=== PATIENT | male | born 1995 | race Caucasian/White ===

== ENCOUNTER 2022-01-02 06:19 | Inpatient (IN) | payer MEDICAID ==
[~2022-01-02] VITALS: Ht 193 cm; Wt 71.8 kg
[2022-01-02] MEDS ORDERED: normal saline 1000ML IV soln IV ONE (06:30)
[2022-01-02] MEDS ORDERED: HYDROmorphone 1 mg/ml syringe IV ONE (07:15)
[2022-01-02] MEDS ORDERED: ondansetron/PF 4mg/2ml inj IV ONE (07:15)
[2022-01-02 07:17] LABS: BASOPHILS % (AUTO) 0.1 % (0-1); EOSINOPHILS % (AUTO) 0 % (0-6); HEMATOCRIT 36.5 % (42.0-52.0); HEMOGLOBIN 12.2 g/dl (14.0-17.9); LYMPHOCYTES # (AUTO) 0.4 X10'3 (1.1-4.8); LYMPHOCYTES % (AUTO) 1.7 % (21-51); MEAN CORPUSCULAR HEMOGLOBIN 27.9 PG (27.0-31.0); MEAN CORPUSCULAR HGB CONC 33.4 g/dL (33.0-36.5); MEAN CORPUSCULAR VOLUME 83.4 FL (78-98); MEAN PLATELET VOLUME 8.4 FL (7.4-10.4); MONOCYTES # (AUTO) 2.9 X10'3 (0-0.9); MONOCYTES % (AUTO) 14.2 % (2-12); NEUTROPHILS # (AUTO) 17.1 X10'3 (1.8-7.7); PLATELET COUNT 283 X10'3 (140-440); RED BLOOD COUNT 4.37 X10'6 (4.70-6.10); RED CELL DISTRIBUTION WIDTH 13.5 % (11.5-14.5); WHITE BLOOD COUNT 20.4 X10'3 (4.5-11.0)
[2022-01-02 07:23] LABS: ALANINE AMINOTRANSFERASE 24 U/L (12-78); ALBUMIN 2.2 G/DL (3.4-5.0); ALBUMIN/GLOBULIN RATIO 0.6 (1.1-1.5); ALKALINE PHOSPHATASE 109 IU/L (46-116); ANION GAP 13 (8-16); ASPARTATE AMINO TRANSFERASE 21 U/L (10-37); BILIRUBIN,TOTAL 1.7 MG/DL (0.1-1.0); BLOOD UREA NITROGEN 10 MG/DL (7-18); BUN/CREATININE RATIO 14.3 (5.4-32.0); CALCIUM 7.7 MG/DL (8.5-10.1); CHLORIDE 97 MMOL/L (99-107); GLUCOSE 126 MG/DL (70-104); MAGNESIUM 1.6 MG/DL (1.5-2.4); POTASSIUM 3.7 MMOL/L (3.5-5.1); SODIUM 133 MMOL/L (135-145); TOTAL CARBON DIOXIDE 22.6 MMOL/L (24-32); TOTAL PROTEIN 5.8 G/DL (6.4-8.2); eGFR > 90 ML/MIN
[2022-01-02] MEDS ORDERED: potassium Cl 20 mEq SR tablet PO PRN ×2 (08:10)
[2022-01-02] MEDS ORDERED: albuterol 2.5 MG/3 ML nebule NEB PRN (08:10)
[2022-01-02] MEDS ORDERED: magnesium 2GM in 50ml NS 50 ML IV PRN (08:10)
[2022-01-02] MEDS ORDERED: mag hydrox/Alum hydrox/simeth 30ml oral suspension PO PRN (08:10)
[2022-01-02] MEDS ORDERED: acetaminophen 325mg tablet PO PRN ×2 (08:10)
[2022-01-02] MEDS ORDERED: PERFLUTREN PROTEIN-A MICROSPHR (Optison) 0.22 MG/ML 3ML VIAL IV ONE (08:10)
[2022-01-02] MEDS ORDERED: ondansetron/PF 4mg/2ml inj IV PRN (08:10)
[2022-01-02] MEDS: normal saline 1000ml 1,000 ML IV SCH ×2 (08:10→15:44)
[2022-01-02] MEDS ORDERED: potassium CL 10mEq/100ml bag 100 ML IV PRN (08:10)
[2022-01-02] MEDS ORDERED: ipratropium/albuterol 3ml nebule NEB PRN (08:10)
[2022-01-02] MEDS ORDERED: HYDROcodone/acetaminophen 5mg/325mg tablet PO PRN (08:10)
[2022-01-02] MEDS ORDERED: magnesium 4gm in 100ml NS 100 ML IV PRN (08:10)
[2022-01-02] MEDS ORDERED: magnesium hydroxide 30ml (MOM) UD suspension PO PRN (08:10)
[2022-01-02] MEDS ORDERED: VANCOMYCIN 1GM/200ML IVPB 200 ML IV ONE (08:10)
[2022-01-02] MEDS ORDERED: vancomycin/NS 1 GM ADD-VANTAGE 250 ML IV ONE (08:45)
[2022-01-02] MEDS ORDERED: VANCOMYCIN 1GM/200ML IVPB 200 ML IV SCH ×2 (09:00→17:00)
[2022-01-02 09:46] LABS: PLATELET ESTIMATE NORMAL; TOTAL CELLS COUNTED 100
--- NOTE | 2022-01-02 09:59 | NUR ---
Report given to CHRIS Ortiz. Pt to be going to room 3705r
[2022-01-02 10:45] VITALS: BP 121/72
[2022-01-02] MEDS: HYDROcodone/acetaminophen 10/325mg tab PO PRN ×2 (10:52→19:26)
[2022-01-02] MEDS ORDERED: NO HOME MEDS (11:34)
[2022-01-02] MEDS ORDERED: tPA-cathflo 2 MG/2 ml IV flush ONE (12:39)
[2022-01-02] MEDS ORDERED: fentaNYL/PF 50MCG/1 ML 2ML syringe ONE (12:42)
[2022-01-02 12:50] VITALS: BP 125/66
[2022-01-02 12:59] VITALS: BP 113/60
[2022-01-02] MEDS: HYDROmorphone inj. 0.5 MG/0.5 ML DISP.SYRIN IV PRN ×2 (14:45→22:55)
[2022-01-02 15:00] VITALS: BP 120/72
[2022-01-02] MEDS: piperacillin/tazo 4.5gm/100ml 100 ML IV SCH (15:44)
[2022-01-02 18:00] VITALS: BP 131/58
[2022-01-02] MEDS: docusate sod 100mg capsule PO SCH (19:24)
[2022-01-02] MEDS: enoxaparin 40mg/0.4ml syringe SQ SCH (19:24)
[2022-01-02] MEDS: K and/or MAG REPLACEMENT MC SCH (19:43)
[2022-01-02] MEDS: nicotine 21mg patch - 24 hr TD SCH (19:43)
[2022-01-02 22:00] VITALS: BP 128/61
[2022-01-03] VITALS (21 sets, daily range): BP systolic 96–171; BP diastolic 52–107
[2022-01-03] MEDS: normal saline 1000ml 1,000 ML IV SCH ×3 (00:26→18:59)
[2022-01-03] MEDS: piperacillin/tazo 4.5gm/100ml 100 ML IV SCH ×3 (00:54→16:00)
[2022-01-03] MEDS ORDERED: VANCOMYCIN 1GM/200ML IVPB 200 ML IV SCH ×2 (01:05→11:23)
[2022-01-03] MEDS ORDERED: VANCOMYCIN 1GM/200ML IVPB 200 ML IV ONE (01:25)
[2022-01-03] MEDS: HYDROmorphone inj. 0.5 MG/0.5 ML DISP.SYRIN IV PRN ×4 (01:41→11:36)
[2022-01-03] MEDS: HYDROcodone/acetaminophen 10/325mg tab PO PRN ×2 (03:51→10:37)
--- NOTE | 2022-01-03 06:34 | NUR ---
Problems reprioritized. Patient report given, questions answered & plan of care reviewed with CHRIS Fields.
--- NOTE | 2022-01-03 07:24 | NUR ---
Dr. Schulte made aware of patient's chest x-ray report called in by x-ray tech Ariel at 0706. He states, " I will look at it". Patient is resting comfortably with no apparent distress. No drainage noted in chest tube drainage canister. Will continue to monitor.
--- NOTE | 2022-01-03 07:57 | NUR ---
I called romero linn back at [phone] Reyes's cell phone number so they can contact him with the critical imaging results
[2022-01-03] MEDS: K and/or MAG REPLACEMENT MC SCH ×2 (08:00→20:00)
[2022-01-03] MEDS ORDERED: VANCOMYCIN LEVEL IV ONE (08:30)
[2022-01-03] MEDS: docusate sod 100mg capsule PO SCH ×2 (08:48→20:00)
[2022-01-03] MEDS: nicotine 21mg patch - 24 hr TD SCH (08:48)
[2022-01-03 09:03] LABS: BASOPHILS % (AUTO) 0.1 % (0-1); EOSINOPHILS % (AUTO) 0 % (0-6); HEMATOCRIT 35.7 % (42.0-52.0); HEMOGLOBIN 11.9 g/dl (14.0-17.9); LYMPHOCYTES # (AUTO) 1.1 X10'3 (1.1-4.8); LYMPHOCYTES % (AUTO) 5.8 % (21-51); MEAN CORPUSCULAR HEMOGLOBIN 28.1 PG (27.0-31.0); MEAN CORPUSCULAR HGB CONC 33.3 g/dL (33.0-36.5); MEAN CORPUSCULAR VOLUME 84.4 FL (78-98); MEAN PLATELET VOLUME 8.3 FL (7.4-10.4); MONOCYTES # (AUTO) 2.2 X10'3 (0-0.9); MONOCYTES % (AUTO) 11.5 % (2-12); NEUTROPHILS # (AUTO) 15.8 X10'3 (1.8-7.7); NEUTROPHILS % (AUTO) 82.6 % (42-75); PLATELET COUNT 334 X10'3 (140-440); RED BLOOD COUNT 4.23 X10'6 (4.70-6.10); WHITE BLOOD COUNT 19.1 X10'3 (4.5-11.0)
[2022-01-03 10:41] LABS: ALANINE AMINOTRANSFERASE 22 U/L (12-78); ALBUMIN 1.8 G/DL (3.4-5.0); ALBUMIN/GLOBULIN RATIO 0.5 (1.1-1.5); ALKALINE PHOSPHATASE 102 IU/L (46-116); ANION GAP 10 (8-16); ASPARTATE AMINO TRANSFERASE 19 U/L (10-37); BILIRUBIN,TOTAL 0.8 MG/DL (0.1-1.0); BLOOD UREA NITROGEN 9 MG/DL (7-18); BUN/CREATININE RATIO 14.1 (5.4-32.0); CALCIUM 7.9 MG/DL (8.5-10.1); CHLORIDE 96 MMOL/L (99-107); CREATININE 0.64 MG/DL (0.60-1.10); GLUCOSE 84 MG/DL (70-104); MAGNESIUM 1.8 MG/DL (1.5-2.4); POTASSIUM 3.8 MMOL/L (3.5-5.1); SODIUM 130 MMOL/L (135-145); TOTAL CARBON DIOXIDE 23.6 MMOL/L (24-32); TOTAL PROTEIN 5.3 G/DL (6.4-8.2); VANCOMYCIN,TROUGH 10.3 UG/ML (6.0-14.0); eGFR > 90 ML/MIN
--- NOTE | 2022-01-03 11:59 | NUR ---
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 Pt currently on regular diet w/ 75-100% first two meals and partially meeting estimated needs. Pt has no edema or muscle weakness, and is WDWN per EMR and does not meet the minimum criteria for malnutrition. summer internship spoke w/ pt at bedside regarding pt preferences, pt likes protein shakes and smoothies. Recommend smoothies BIDBD and shakes WL to help meet increased protein needs. LBM pending, receiving routine bowel care. Will continue to monitor for nutrition needs. Recommendations: 1. Continue regular diet 2. Smoothies BIDBD, shakes WL 3. Routine bowel care 4. Weekly scaled wts Addendum: 01/03/22 at [address] Amended: Links added. Addendum: 01/03/22 at [address] I have reviewed assessment by consultants intern
[2022-01-03] MEDS ORDERED: TALC 4 GM VIAL ***intrapleural administration only IX ONE (12:28)
[2022-01-03] MEDS ORDERED: sevoflurane 250ml liquid IH ONE (13:42)
[2022-01-03] MEDS ORDERED: rocuronium 10mg/ml inj IV ONE ×3 (13:45→15:42)
[2022-01-03] MEDS ORDERED: LIDOcaine 2% (20mg/ml) 5ml vial ONE (13:45)
[2022-01-03] MEDS ORDERED: propofol inj 20 ML IV ONE (13:45)
[2022-01-03] MEDS ORDERED: MIDAZolam 1 MG/ML 5ML VIAL ONE (13:48)
[2022-01-03] MEDS ORDERED: dexamethasone sod phosphate 4mg/ml inj. ONE (14:45)
[2022-01-03] MEDS ORDERED: fentaNYL /PF 50mcg/ml 5ml ampule ONE (14:45)
[2022-01-03] MEDS ORDERED: ondansetron/PF 4mg/2ml inj ONE (14:46)
[2022-01-03] MEDS ORDERED: albumin (Human) 5% 250ml 250 ML IV ONE (14:53)
[2022-01-03] MEDS ORDERED: ringers solution, lacted 1,000 ML IV SCH (15:10)
[2022-01-03] MEDS ORDERED: ondansetron/PF 4mg/2ml inj IV PRN ×2 (15:10→16:05)
[2022-01-03] MEDS ORDERED: midazolam 100mg in NS 100ml 50 ML IV SCH (15:10)
[2022-01-03] MEDS ORDERED: labetalol 20mg/4ml (5mg/ml) syringe IV PRN (15:10)
[2022-01-03] MEDS ORDERED: morphine 4 MG/ML inj SYRINge IV PRN (15:10)
[2022-01-03] MEDS ORDERED: morphine 2 MG/ML inj. syringe IV PRN (15:10)
[2022-01-03] MEDS ORDERED: fentaNYL/PF 50MCG/1 ML 2ML syringe IV PRN ×2 (15:10)
[2022-01-03] MEDS ORDERED: albuterol 2.5 MG/3 ML nebule NEB PRN (16:05)
[2022-01-03] MEDS ORDERED: metoclopramide 5 mg/ml inj IV PRN (16:05)
[2022-01-03] MEDS ORDERED: HYDROcodone/acetaminophen 10/325mg tab PO PRN ×2 (16:05)
[2022-01-03] MEDS ORDERED: naloxone 0.4 mg/ml inj IV PRN (16:05)
--- NOTE | 2022-01-03 16:16 | NUR ---
Received from OR via BED IN STABLE CONDITION INTUBATED AND RIGHT CHEST TUBE , accompanied by Anesthesiologist and PREDICTIVE MAINTENANCE TECHNICIAN report given by PREDICTIVE MAINTENANCE TECHNICIAN AND Anesthesiolgist. Addendum: 01/03/22 at 1801 by Veronica Santoyo RN Amended: Links added.
--- NOTE | 2022-01-03 16:20 | NUR ---
FENTANYL AND VERSED STARTED AT 1620 Addendum: 01/03/22 at 1641 by Veronica Santoyo RN Amended: Links added.
[2022-01-03] MEDS: FENTANYL-0.9 % NACL/PF 100 ML IV PRN ×2 (16:37→20:54)
[2022-01-03 16:55] LABS: ABG BASE EXCESS -2.9 mmol/L (-2.0-2.0); ABG HCO3 21.8 mmol/L (22.0-26.0); ABG OXYGEN SATURATION 99.3 % (94-97); ABG PCO2 (T) 36.6 mmHg (35.0-48.0); ABG PO2 (T) 248.4 mmHg (75.0-100.0); FCOHb 0.3 % (0.0-3.9); FMetHb 0.5 % (0.0-1.5); FO2Hb 98.5 % (94-97); PATIENT TEMPERATURE 36.4; PEEP 5 cm H2O; RESPIRATORY RATE 12 b/min; TIDAL VOLUME 650 mL; TOTAL HEMOGLOBIN 12.8 G/dl (14.0-18.0)
[2022-01-03] MEDS: VANCOmycin 1250MG/NS 250ml Bag 250 ML IV SCH (17:00)
--- NOTE | 2022-01-03 17:36 | NUR ---
PATIENT DISCHARGED FROM PACU IN STABLE CONDITION AFTER REPORT GIVEN TO RN TAKING OVER PATIENTS CARE. PATIENT TRANSPORTED TO ROOM 2038 VIA BED ON MONITOR WITH RN X2 AND BEING BAGED BY RT. ALL LINES AND DRAINS IN PLACE. SEDATION RUNNING. Addendum: 01/03/22 at 1819 by Veronica Santoyo RN Amended: Links added.
--- NOTE | 2022-01-03 17:57 | NUR ---
Patient came from recovery via ICU bed with x2 RN and x1 RT. Patient was awake and slightly agitated upon arrival. Patient was found to have Fentanyl running at 200 mcg/hr and Versed running at 8mL /hr. Patient was connected to vent and ICU monitors. Vitals are as follows HR 97 BP 158/77 Temp 36.8 RR 18 O2 sat 97% on SIMV FiO2 of 40%. Patient skin was assessed and upon turning patient to the left it was noted that the surgical site was leaking through the bandage and saturating the bed sheet. Sanguinous drainage outlined on dressing at 1747. It was also noted that the patient had crepitus to posterior and lateral chest. A call was made to Dr. Reyes's phone to ensure he was aware of this finding. Dr. Reyes is currently in surgery and the message was relayed. Chest tube is without air leak and with 196 mL of output total. Urine output 110 mL. Lungs are very coarse throughout, bilateral radial pulses and bilateral pedal pulses palpated and were normal, cap refill less than 2 seconds. No edema noted throughout. It appears that the patient has needle stick rodriguez following veins on bilateral upper extremities.
--- NOTE | 2022-01-03 18:09 | NUR ---
FENTANYL INCREASED FOR SEDATION TO 50MCG@1645, 75MCG@1715. VERSED WAS INCREASED FOR SEDATION TO 3MG@1645, 5MG@1715, TO 8MG@1735. Addendum: 01/03/22 at 1819 by Veronica Santoyo RN Amended: Links added.
--- NOTE | 2022-01-03 18:25 | NUR ---
Patient in room ICU 2038. I have received report from Malaika PEREZ and had the opportunity to ask questions and assume patient care. PT intubated/sedated, all vital signs WNL. Will continue to monitor patient.
--- NOTE | 2022-01-03 18:26 | NUR ---
Spoke with Dr. Reyes who stated that he now understands about the patient's crepitus and leaking surgical site. He gave orders to continue the chest tube to suction. He also stated that the plan is to leave the patient intubated over night and assess in the morning to see if he is ready for extubation.
--- NOTE | 2022-01-03 18:53 | NUR ---
Problems reprioritized. Patient report given, questions answered & plan of care reviewed with Tg Mohamud
--- NOTE | 2022-01-03 19:05 | NUR ---
Dr. Catalan at bedside to assess patient. Drainage to chest tube incision site noted by MD. No new orders received. Will continue to monitor patient.
[2022-01-03 21:12] LABS: BASOPHILS % (AUTO) 0.1 % (0-1); EOSINOPHILS % (AUTO) 0 % (0-6); HEMATOCRIT 33.8 % (42.0-52.0); HEMOGLOBIN 11.2 g/dl (14.0-17.9); LYMPHOCYTES # (AUTO) 0.4 X10'3 (1.1-4.8); MEAN CORPUSCULAR HEMOGLOBIN 27.5 PG (27.0-31.0); MEAN CORPUSCULAR HGB CONC 33.1 g/dL (33.0-36.5); MEAN CORPUSCULAR VOLUME 83.2 FL (78-98); MEAN PLATELET VOLUME 7.7 FL (7.4-10.4); MONOCYTES # (AUTO) 1.2 X10'3 (0-0.9); MONOCYTES % (AUTO) 5.5 % (2-12); NEUTROPHILS # (AUTO) 19.7 X10'3 (1.8-7.7); NEUTROPHILS % (AUTO) 92.4 % (42-75); PLATELET COUNT 348 X10'3 (140-440); RED BLOOD COUNT 4.06 X10'6 (4.70-6.10); WHITE BLOOD COUNT 21.3 X10'3 (4.5-11.0)
[2022-01-03 21:33] LABS: ALANINE AMINOTRANSFERASE 13 U/L (12-78); ALBUMIN/GLOBULIN RATIO 0.6 (1.1-1.5); ANION GAP 14 (8-16); ASPARTATE AMINO TRANSFERASE 19 U/L (10-37); BILIRUBIN,TOTAL 0.6 MG/DL (0.1-1.0); BLOOD UREA NITROGEN 9 MG/DL (7-18); BUN/CREATININE RATIO 17.3 (5.4-32.0); CALCIUM 7.9 MG/DL (8.5-10.1); CHLORIDE 99 MMOL/L (99-107); CREATININE 0.52 MG/DL (0.60-1.10); GLUCOSE 99 MG/DL (70-104); MAGNESIUM 1.7 MG/DL (1.5-2.4); PHOSPHORUS 3.8 MG/DL (2.3-4.5); POTASSIUM 4.2 MMOL/L (3.5-5.1); SODIUM 136 MMOL/L (135-145); TOTAL CARBON DIOXIDE 22.6 MMOL/L (24-32); TOTAL PROTEIN 5.2 G/DL (6.4-8.2); eGFR > 90 ML/MIN
[2022-01-03] MEDS: gabapentin 300mg capsule PO SCH (21:49)
[2022-01-03] MEDS: ketorolac tromethamine 15mg/ml inj. IV SCH (21:49)
[2022-01-03] MEDS: enoxaparin 40mg/0.4ml syringe SQ SCH (21:49)
[2022-01-03] MEDS: potassium Cl 20mEq in D5-NS 1,000 ML IV SCH (23:19)
[2022-01-03] MEDS: ceFAZolin inj. 1,000 MG in dextrose 5%-water 50ml 50 ML IV SCH (23:19)
[2022-01-04] VITALS (31 sets, daily range): BP systolic 97–156; BP diastolic 57–76
[2022-01-04] MEDS: FENTANYL-0.9 % NACL/PF 100 ML IV PRN (00:06)
[2022-01-04] MEDS ORDERED: midazolam 100mg in NS 100ml 100 ML IV PRN (00:10)
[2022-01-04 00:14] LABS: PLATELET ESTIMATE NORMAL; TOTAL CELLS COUNTED 100
[2022-01-04] MEDS: piperacillin/tazo 4.5gm/100ml 100 ML IV SCH ×3 (00:25→16:52)
[2022-01-04] MEDS: normal saline 1000ml 1,000 ML IV SCH ×3 (00:26→15:28)
[2022-01-04] MEDS: VANCOmycin 1250MG/NS 250ml Bag 250 ML IV SCH (01:48)
[2022-01-04] MEDS: ketorolac tromethamine 15mg/ml inj. IV SCH ×3 (02:50→14:07)
[2022-01-04 03:12] LABS: ABG HCO3 22.9 mmol/L (22.0-26.0); ABG OXYGEN SATURATION 97.5 % (94-97); ABG PCO2 (T) 34.4 mmHg (35.0-48.0); ABG PO2 (T) 97.4 mmHg (75.0-100.0); FCOHb 0.3 % (0.0-3.9); FMetHb 0.2 % (0.0-1.5); PATIENT TEMPERATURE 36.4; PEEP 5 cm H2O; RESPIRATORY RATE 12 b/min; TIDAL VOLUME 650 mL; TOTAL HEMOGLOBIN 11.5 G/dl (14.0-18.0)
[2022-01-04 03:54] LABS: BASOPHILS % (AUTO) 0 % (0-1); EOSINOPHILS % (AUTO) 0 % (0-6); HEMATOCRIT 31.3 % (42.0-52.0); HEMOGLOBIN 10.5 g/dl (14.0-17.9); LYMPHOCYTES # (AUTO) 0.7 X10'3 (1.1-4.8); LYMPHOCYTES % (AUTO) 4.1 % (21-51); MEAN CORPUSCULAR HEMOGLOBIN 27.9 PG (27.0-31.0); MEAN CORPUSCULAR HGB CONC 33.5 g/dL (33.0-36.5); MEAN CORPUSCULAR VOLUME 83.5 FL (78-98); MONOCYTES % (AUTO) 6.2 % (2-12); NEUTROPHILS # (AUTO) 14.9 X10'3 (1.8-7.7); NEUTROPHILS % (AUTO) 89.7 % (42-75); PLATELET COUNT 338 X10'3 (140-440); RED BLOOD COUNT 3.75 X10'6 (4.70-6.10); RED CELL DISTRIBUTION WIDTH 13.8 % (11.5-14.5); WHITE BLOOD COUNT 16.6 X10'3 (4.5-11.0)
[2022-01-04 04:25] LABS: ALANINE AMINOTRANSFERASE 18 U/L (12-78); ALBUMIN 1.8 G/DL (3.4-5.0); ALBUMIN/GLOBULIN RATIO 0.6 (1.1-1.5); ANION GAP 12 (8-16); ASPARTATE AMINO TRANSFERASE 19 U/L (10-37); BILIRUBIN,TOTAL 0.4 MG/DL (0.1-1.0); BLOOD UREA NITROGEN 12 MG/DL (7-18); CALCIUM 7.3 MG/DL (8.5-10.1); CHLORIDE 100 MMOL/L (99-107); GLUCOSE 124 MG/DL (70-104); POTASSIUM 4.2 MMOL/L (3.5-5.1); SODIUM 135 MMOL/L (135-145); TOTAL CARBON DIOXIDE 22.7 MMOL/L (24-32); eGFR > 90 ML/MIN
[2022-01-04] MEDS: potassium Cl 20mEq in D5-NS 1,000 ML IV SCH ×2 (04:35→16:52)
--- NOTE | 2022-01-04 06:27 | NUR ---
Problems reprioritized. Patient report given, questions answered & plan of care reviewed with Malaika and Blanca Rns.
--- NOTE | 2022-01-04 06:30 | NUR ---
Patient in room ICU 2038. I have received report from Beatriz PEREZ and had the opportunity to ask questions and assume patient care. Pt semi fowlers in bed, ET tube in place and patent, SIMV mode. fio2 40%. pt sedated: versed at 2mg. safety measures in place. soft restraints to BUE, CRM +.
[2022-01-04] MEDS ORDERED: vancomycin inj. 1,250 MG in dextrose 5%-water 250 ML IV SCH (07:38)
--- NOTE | 2022-01-04 07:55 | NUR ---
Pt waking, answering yes and no to questions by nodding head. pain present, mild agitation present. fentanyl turned back on @ 25mcgs, versed decreased to 1mg to facilitate light sedation with analgesic effect. therapeutic conversation employed, reorientation to surrounding and pt education. frequent reinforcement needed.
[2022-01-04] MEDS: docusate sod 100mg capsule PO SCH ×2 (08:00→20:46)
[2022-01-04] MEDS: K and/or MAG REPLACEMENT MC SCH ×2 (08:00→20:00)
[2022-01-04] MEDS: ceFAZolin inj. 1,000 MG in dextrose 5%-water 50ml 50 ML IV SCH (08:01)
[2022-01-04] MEDS: gabapentin 300mg capsule PO SCH ×2 (08:01→20:46)
[2022-01-04] MEDS: nicotine 21mg patch - 24 hr TD SCH (08:02)
--- NOTE | 2022-01-04 08:05 | NUR ---
pt with high peak pressures. changed to CPAP mode. pt tolerating much better. RT Lindsey notified.
[2022-01-04] MEDS ORDERED: VANCOMYCIN 1,250mg inj. 1,250 GM in dextrose 5%-water 250 ML IV SCH (09:00)
[2022-01-04] MEDS: DEXTROSE 5% IV SCH ×2 (09:05→16:52)
[2022-01-04] MEDS: VANCOMYCIN IV SCH ×2 (09:05→16:52)
[2022-01-04] MEDS: WATER IV SCH ×2 (09:05→16:52)
--- NOTE | 2022-01-04 10:28 | NUR ---
F/u 01/04: Pt intubated s/p R thoracotomy/complete decortication/chest tubes x2 placement per EMR. Pt w/ regular diet active though NPO at this time post-op; JOANN d/w RN regarding cancelling diet if MD agreeable given intubation. TF recs below in case prolonged intubation. No BM yet though only two days admitted and receiving routine colace per EMR. Will monitor for further nutrition intervention needs. Recommendations: 1. IF TF; Vital AF at 85ml/hr goal 2. IF TF; additional water flush per MD w/ serum Na 135mmol/L this AM 3. Upon extubation; advance diet as medically indicated to regular w/ smoothies BIDBD/shakes WL per prior preferences 4. Routine bowel care 5. Weekly scaled wts Addendum: 01/04/22 at [address] Amended: Links added.
--- NOTE | 2022-01-04 10:30 | NUR ---
Problems reprioritized. Patient report given, questions answered & plan of care reviewed with Danni PEREZ. Pt intubated on cpap/ps setting, semi fowlers, spo2 stable at 97%. pt in and out of sleeping, chest rising and falling evenly. safety measures in place.
[2022-01-04] MEDS: HYDROmorphone inj. 0.5 MG/0.5 ML DISP.SYRIN IV PRN (13:42)
[2022-01-04] MEDS ORDERED: naloxone 0.4 mg/ml inj IV PRN (14:20)
[2022-01-04] MEDS ORDERED: CADD PCA waste documentation MC PRN (14:20)
[2022-01-04] MEDS: HYDROmorph./NS 0.2 mg/ml CADD 100 ML IV SCH ×5 (15:23→23:00)
[2022-01-04] MEDS ORDERED: VANCOMYCIN LEVEL IV ONE (16:30)
[2022-01-04] MEDS: enoxaparin 40mg/0.4ml syringe SQ SCH (20:46)
[2022-01-05] VITALS (18 sets, daily range): BP systolic 113–140; BP diastolic 58–88
[2022-01-05] MEDS: piperacillin/tazo 4.5gm/100ml 100 ML IV SCH ×3 (00:30→16:56)
[2022-01-05] MEDS: HYDROmorph./NS 0.2 mg/ml CADD 100 ML IV SCH ×13 (01:00→23:00)
[2022-01-05] MEDS: VANCOMYCIN 1,500MG inj. 1,500 MG in dextrose 5% water 500ml 300 ML IV SCH ×3 (01:21→17:59)
[2022-01-05 01:25] LABS: BASOPHILS # (AUTO) 0.1 X10'3 (0-0.2); BASOPHILS % (AUTO) 0.3 % (0-1); EOSINOPHILS % (AUTO) 0.1 % (0-6); HEMATOCRIT 33.6 % (42.0-52.0); HEMOGLOBIN 11.2 g/dl (14.0-17.9); LYMPHOCYTES # (AUTO) 1.8 X10'3 (1.1-4.8); LYMPHOCYTES % (AUTO) 9.7 % (21-51); MEAN CORPUSCULAR HGB CONC 33.5 g/dL (33.0-36.5); MEAN CORPUSCULAR VOLUME 83.6 FL (78-98); MEAN PLATELET VOLUME 7.4 FL (7.4-10.4); MONOCYTES % (AUTO) 10.4 % (2-12); NEUTROPHILS # (AUTO) 14.9 X10'3 (1.8-7.7); NEUTROPHILS % (AUTO) 79.5 % (42-75); PLATELET COUNT 427 X10'3 (140-440); RED BLOOD COUNT 4.02 X10'6 (4.70-6.10); RED CELL DISTRIBUTION WIDTH 13.9 % (11.5-14.5); WHITE BLOOD COUNT 18.7 X10'3 (4.5-11.0)
[2022-01-05 01:54] LABS: ALANINE AMINOTRANSFERASE 21 U/L (12-78); ALBUMIN 1.7 G/DL (3.4-5.0); ALBUMIN/GLOBULIN RATIO 0.5 (1.1-1.5); ALKALINE PHOSPHATASE 78 IU/L (46-116); ANION GAP 7 (8-16); ASPARTATE AMINO TRANSFERASE 26 U/L (10-37); BILIRUBIN,TOTAL 0.3 MG/DL (0.1-1.0); BLOOD UREA NITROGEN 13 MG/DL (7-18); BUN/CREATININE RATIO 18.6 (5.4-32.0); CALCIUM 7.4 MG/DL (8.5-10.1); CHLORIDE 105 MMOL/L (99-107); GLUCOSE 112 MG/DL (70-104); POTASSIUM 3.7 MMOL/L (3.5-5.1); SODIUM 139 MMOL/L (135-145); TOTAL CARBON DIOXIDE 27.4 MMOL/L (24-32); TOTAL PROTEIN 5.4 G/DL (6.4-8.2); eGFR > 90 ML/MIN
--- NOTE | 2022-01-05 02:30 | NUR ---
I have reviewed and agree with all interventions, assessments performed and documented by Xochitl PEREZ.
[2022-01-05] MEDS: potassium Cl 20mEq in D5-NS 1,000 ML IV SCH ×2 (05:35→12:37)
[2022-01-05] MEDS ORDERED: NORMAL SALINE IV SCH (09:00)
[2022-01-05] MEDS ORDERED: VANCOMYCIN IV SCH (09:00)
[2022-01-05] MEDS: gabapentin 300mg capsule PO SCH (09:02)
[2022-01-05] MEDS: docusate sod 100mg capsule PO SCH ×2 (09:02→20:22)
[2022-01-05] MEDS: nicotine 21mg patch - 24 hr TD SCH (09:02)
[2022-01-05] MEDS ORDERED: HYDROcodone/acetaminophen 10/325mg tab PO PRN (10:40)
[2022-01-05] MEDS ORDERED: naloxone 0.4 mg/ml inj IV PRN (10:50)
[2022-01-05] MEDS ORDERED: CADD PCA waste documentation MC PRN (10:50)
[2022-01-05] MEDS ORDERED: HYDROmorph./NS 0.2 mg/ml CADD 100 ML IV SCH ×2 (11:00→16:10)
[2022-01-05] MEDS: K and/or MAG REPLACEMENT MC SCH ×2 (13:00→20:23)
[2022-01-05] MEDS: ketorolac trometh. 30mg/ml inj. IV SCH ×3 (14:14→21:23)
--- NOTE | 2022-01-05 14:38 | NUR ---
Report given to [facility] unit RN [facility], soon to transfer to rm 310.
[2022-01-05] MEDS: CADD PCA waste documentation MC PRN (15:54)
[2022-01-05] MEDS: enoxaparin 40mg/0.4ml syringe SQ SCH (20:22)
[2022-01-06] MEDS ORDERED: VANCOMYCIN LEVEL IV ONE (00:30)
[2022-01-06] MEDS: HYDROmorph./NS 0.2 mg/ml CADD 100 ML IV SCH ×10 (01:00→21:00)
[2022-01-06 01:12] LABS: BASOPHILS # (AUTO) 0.1 X10'3 (0-0.2); BASOPHILS % (AUTO) 0.5 % (0-1); EOSINOPHILS # (AUTO) 0.2 X10'3 (0-0.9); EOSINOPHILS % (AUTO) 1.2 % (0-6); HEMATOCRIT 32.2 % (42.0-52.0); HEMOGLOBIN 10.9 g/dl (14.0-17.9); LYMPHOCYTES # (AUTO) 2.9 X10'3 (1.1-4.8); LYMPHOCYTES % (AUTO) 21.5 % (21-51); MEAN CORPUSCULAR HGB CONC 33.8 g/dL (33.0-36.5); MEAN CORPUSCULAR VOLUME 83.1 FL (78-98); MEAN PLATELET VOLUME 6.9 FL (7.4-10.4); MONOCYTES # (AUTO) 2.1 X10'3 (0-0.9); MONOCYTES % (AUTO) 15.4 % (2-12); NEUTROPHILS # (AUTO) 8.4 X10'3 (1.8-7.7); NEUTROPHILS % (AUTO) 61.4 % (42-75); PLATELET COUNT 451 X10'3 (140-440); RED BLOOD COUNT 3.87 X10'6 (4.70-6.10); RED CELL DISTRIBUTION WIDTH 13.8 % (11.5-14.5); WHITE BLOOD COUNT 13.6 X10'3 (4.5-11.0)
[2022-01-06] MEDS: piperacillin/tazo 4.5gm/100ml 100 ML IV SCH ×3 (01:21→16:50)
[2022-01-06] MEDS: VANCOMYCIN 1,500MG inj. 1,500 MG in normal saline 500ml IV soln 300 ML IV SCH ×3 (01:21→16:50)
[2022-01-06 01:30] LABS: ALANINE AMINOTRANSFERASE 33 U/L (12-78); ALBUMIN 1.6 G/DL (3.4-5.0); ALBUMIN/GLOBULIN RATIO 0.5 (1.1-1.5); ALKALINE PHOSPHATASE 64 IU/L (46-116); ANION GAP 7 (8-16); ASPARTATE AMINO TRANSFERASE 29 U/L (10-37); BILIRUBIN,TOTAL 0.2 MG/DL (0.1-1.0); BLOOD UREA NITROGEN 8 MG/DL (7-18); BUN/CREATININE RATIO 13.1 (5.4-32.0); CALCIUM 7.1 MG/DL (8.5-10.1); CHLORIDE 106 MMOL/L (99-107); CREATININE 0.61 MG/DL (0.60-1.10); MAGNESIUM 1.7 MG/DL (1.5-2.4); POTASSIUM 4.5 MMOL/L (3.5-5.1); SODIUM 139 MMOL/L (135-145); TOTAL CARBON DIOXIDE 26.5 MMOL/L (24-32); TOTAL PROTEIN 4.9 G/DL (6.4-8.2); eGFR > 90 ML/MIN
[2022-01-06 01:43] LABS: GLUCOSE 109 MG/DL (70-104); VANCOMYCIN,TROUGH 15.6 UG/ML (6.0-14.0)
[2022-01-06 02:00] VITALS: BP 139/86
[2022-01-06] MEDS: potassium Cl 20mEq in D5-NS 1,000 ML IV SCH (05:02)
[2022-01-06 06:00] VITALS: BP 130/70
[2022-01-06] MEDS: K and/or MAG REPLACEMENT MC SCH ×2 (08:00→19:47)
[2022-01-06] MEDS: ketorolac trometh. 30mg/ml inj. IV SCH ×3 (08:55→19:43)
[2022-01-06] MEDS: docusate sod 100mg capsule PO SCH ×2 (08:55→19:44)
[2022-01-06] MEDS: nicotine 21mg patch - 24 hr TD SCH (08:56)
[2022-01-06 11:00] VITALS: BP 131/78
--- NOTE | 2022-01-06 11:27 | NUR ---
F/u 01/06: Pt extubated 01/04 advanced to regular diet PO ~46% avg first 3 meals post-op yesterday though improved to 88% dinner last night per EMR partially meeting needs. Pt would benefit from Jeff smoothie BIDBD given wound healing needs and prior pt food preference; DO notified. Noted -10.2kg wt loss one day comparing initial standing scaled wt to subsequent bed scale wt; initial wt possible error. LBM 01/04 receiving routine colace. Will continue to monitor for additional nutrition intervention needs post-op pending further PO trends. Recommendations: 1. continue regular diet; encourage PO 2. Jeff smoothie BIDBD for wound healing pending DO verification in EMR; regular shake WL per pt preference 3. Routine bowel care 4. Weekly wts Addendum: 01/06/22 at [address] Amended: Links added.
[2022-01-06] MEDS ORDERED: HYDROmorphone (Dilaudid)/NS 0.2 mg/ml 100ml CADD ONE (13:03)
[2022-01-06] MEDS: CADD PCA waste documentation MC PRN (13:14)
[2022-01-06] MEDS: normal saline 1000ml 1,000 ML IV SCH (14:20)
[2022-01-06 15:00] VITALS: BP 119/77
[2022-01-06] MEDS: JUVEN Smoothie Arginine/Glut./Ca2+Bmb (Juven 19.3pkt) 240ml cup PO SCH (17:30)
[2022-01-06 18:00] VITALS: BP 123/74
--- NOTE | 2022-01-06 19:03 | NUR ---
Patient in room MED 310. I have received report from MASSIEL PEREZ and had the opportunity to ask questions and assume patient care.
--- NOTE | 2022-01-06 19:06 | NUR ---
Pt. has two working peripheral IVs. R IJ CVC discontinued @ 7440.
[2022-01-06] MEDS: enoxaparin 40mg/0.4ml syringe SQ SCH (19:47)
[2022-01-06 22:00] VITALS: BP 123/78
[2022-01-07] MEDS: piperacillin/tazo 4.5gm/100ml 100 ML IV SCH ×4 (00:36→23:46)
[2022-01-07] MEDS: HYDROmorph./NS 0.2 mg/ml CADD 100 ML IV SCH ×12 (01:00→23:00)
[2022-01-07] MEDS: VANCOMYCIN 1,500MG inj. 1,500 MG in normal saline 500ml IV soln 300 ML IV SCH ×3 (01:12→16:53)
[2022-01-07 02:00] VITALS: BP 137/80
[2022-01-07] MEDS: ketorolac trometh. 30mg/ml inj. IV SCH ×4 (03:48→19:51)
--- NOTE | 2022-01-07 06:25 | NUR ---
Patient in room MED 310. I have received report from CHRIS Brooks and had the opportunity to ask questions and assume patient care.
[2022-01-07 07:01] VITALS: BP 115/70
[2022-01-07 07:19] LABS: BASOPHILS # (AUTO) 0.1 X10'3 (0-0.2); BASOPHILS % (AUTO) 0.4 % (0-1); EOSINOPHILS # (AUTO) 0.4 X10'3 (0-0.9); EOSINOPHILS % (AUTO) 3.3 % (0-6); HEMATOCRIT 36.8 % (42.0-52.0); HEMOGLOBIN 12.2 g/dl (14.0-17.9); LYMPHOCYTES % (AUTO) 14.7 % (21-51); MEAN CORPUSCULAR HEMOGLOBIN 27.9 PG (27.0-31.0); MEAN CORPUSCULAR HGB CONC 33.1 g/dL (33.0-36.5); MEAN CORPUSCULAR VOLUME 84.3 FL (78-98); MEAN PLATELET VOLUME 7.2 FL (7.4-10.4); MONOCYTES # (AUTO) 1.7 X10'3 (0-0.9); MONOCYTES % (AUTO) 12.3 % (2-12); NEUTROPHILS # (AUTO) 9.4 X10'3 (1.8-7.7); NEUTROPHILS % (AUTO) 69.3 % (42-75); PLATELET COUNT 497 X10'3 (140-440); RED BLOOD COUNT 4.36 X10'6 (4.70-6.10); RED CELL DISTRIBUTION WIDTH 13.7 % (11.5-14.5); WHITE BLOOD COUNT 13.5 X10'3 (4.5-11.0)
[2022-01-07] MEDS: JUVEN Smoothie Arginine/Glut./Ca2+Bmb (Juven 19.3pkt) 240ml cup PO SCH ×2 (07:30→17:30)
[2022-01-07 07:59] LABS: ALANINE AMINOTRANSFERASE 31 U/L (12-78); ALBUMIN 1.8 G/DL (3.4-5.0); ALBUMIN/GLOBULIN RATIO 0.5 (1.1-1.5); ALKALINE PHOSPHATASE 68 IU/L (46-116); ANION GAP 11 (8-16); ASPARTATE AMINO TRANSFERASE 21 U/L (10-37); BILIRUBIN,TOTAL 0.2 MG/DL (0.1-1.0); BLOOD UREA NITROGEN 12 MG/DL (7-18); BUN/CREATININE RATIO 18.8 (5.4-32.0); CALCIUM 7.9 MG/DL (8.5-10.1); CHLORIDE 106 MMOL/L (99-107); CREATININE 0.64 MG/DL (0.60-1.10); POTASSIUM 4.8 MMOL/L (3.5-5.1); SODIUM 142 MMOL/L (135-145); TOTAL CARBON DIOXIDE 25.1 MMOL/L (24-32); TOTAL PROTEIN 5.7 G/DL (6.4-8.2); eGFR > 90 ML/MIN
[2022-01-07] MEDS: K and/or MAG REPLACEMENT MC SCH ×2 (08:00→20:00)
[2022-01-07 08:06] LABS: GLUCOSE 93 MG/DL (70-104)
[2022-01-07] MEDS: nicotine 21mg patch - 24 hr TD SCH (08:41)
[2022-01-07] MEDS: docusate sod 100mg capsule PO SCH ×2 (08:41→19:51)
[2022-01-07 11:00] VITALS: BP 131/72
[2022-01-07] MEDS ORDERED: HYDROmorphone (Dilaudid)/NS 0.2 mg/ml 100ml CADD ONE (12:36)
[2022-01-07] MEDS: CADD PCA waste documentation MC PRN (12:46)
[2022-01-07] MEDS: normal saline 1000ml 1,000 ML IV SCH (14:21)
[2022-01-07 15:00] VITALS: BP 143/85
[2022-01-07 18:00] VITALS: BP 134/77
--- NOTE | 2022-01-07 18:26 | NUR ---
Patient in room MED 310. I have received report from Lorena PEREZ and had the opportunity to ask questions and assume patient care.
--- NOTE | 2022-01-07 18:30 | NUR ---
Problems reprioritized. Patient report given, questions answered & plan of care reviewed with CHRIS Oliveira.
[2022-01-07] MEDS: enoxaparin 40mg/0.4ml syringe SQ SCH (19:52)
[2022-01-07 22:00] VITALS: BP 134/96
[2022-01-08] MEDS: VANCOMYCIN 1,500MG inj. 1,500 MG in normal saline 500ml IV soln 300 ML IV SCH ×3 (00:46→17:00)
[2022-01-08] MEDS: HYDROmorph./NS 0.2 mg/ml CADD 100 ML IV SCH ×12 (01:00→23:00)
[2022-01-08 02:00] VITALS: BP 133/77
[2022-01-08 06:00] VITALS: BP 132/74
[2022-01-08] MEDS: ketorolac trometh. 30mg/ml inj. IV SCH ×4 (06:00→20:06)
--- NOTE | 2022-01-08 06:35 | NUR ---
Problems reprioritized. Patient report given, questions answered & plan of care reviewed with Ina PEREZ.
[2022-01-08 07:05] LABS: BASOPHILS % (AUTO) 0.3 % (0-1); EOSINOPHILS # (AUTO) 0.6 X10'3 (0-0.9); HEMOGLOBIN 11.2 g/dl (14.0-17.9); LYMPHOCYTES # (AUTO) 2.2 X10'3 (1.1-4.8); LYMPHOCYTES % (AUTO) 13.8 % (21-51); MEAN CORPUSCULAR HEMOGLOBIN 28.8 PG (27.0-31.0); MEAN CORPUSCULAR VOLUME 82.5 FL (78-98); MEAN PLATELET VOLUME 6.7 FL (7.4-10.4); MONOCYTES # (AUTO) 1.6 X10'3 (0-0.9); NEUTROPHILS # (AUTO) 11.4 X10'3 (1.8-7.7); NEUTROPHILS % (AUTO) 71.9 % (42-75); PLATELET COUNT 551 X10'3 (140-440); RED BLOOD COUNT 3.87 X10'6 (4.70-6.10); RED CELL DISTRIBUTION WIDTH 13.8 % (11.5-14.5); WHITE BLOOD COUNT 15.9 X10'3 (4.5-11.0)
[2022-01-08] MEDS: JUVEN Smoothie Arginine/Glut./Ca2+Bmb (Juven 19.3pkt) 240ml cup PO SCH ×2 (07:30→17:30)
[2022-01-08] MEDS: K and/or MAG REPLACEMENT MC SCH ×2 (08:00→20:00)
[2022-01-08 08:03] LABS: ALANINE AMINOTRANSFERASE 31 U/L (12-78); ALBUMIN 1.7 G/DL (3.4-5.0); ALBUMIN/GLOBULIN RATIO 0.4 (1.1-1.5); ALKALINE PHOSPHATASE 64 IU/L (46-116); ANION GAP 11 (8-16); ASPARTATE AMINO TRANSFERASE 22 U/L (10-37); BILIRUBIN,TOTAL 0.2 MG/DL (0.1-1.0); BLOOD UREA NITROGEN 10 MG/DL (7-18); BUN/CREATININE RATIO 16.1 (5.4-32.0); CALCIUM 7.4 MG/DL (8.5-10.1); CHLORIDE 105 MMOL/L (99-107); CREATININE 0.62 MG/DL (0.60-1.10); POTASSIUM 4.9 MMOL/L (3.5-5.1); SODIUM 139 MMOL/L (135-145); TOTAL CARBON DIOXIDE 23.1 MMOL/L (24-32); TOTAL PROTEIN 5.6 G/DL (6.4-8.2); eGFR > 90 ML/MIN
[2022-01-08 08:04] LABS: GLUCOSE 92 MG/DL (70-104)
[2022-01-08] MEDS: piperacillin/tazo 4.5gm/100ml 100 ML IV SCH ×2 (08:35→15:35)
[2022-01-08] MEDS: nicotine 21mg patch - 24 hr TD SCH (08:35)
[2022-01-08] MEDS: docusate sod 100mg capsule PO SCH ×2 (08:35→20:06)
[2022-01-08 10:00] VITALS: BP 136/73
--- NOTE | 2022-01-08 11:30 | NUR ---
refused chest tube dressing change. He states that he hopes to have it removed tomorrow. So he will keep the dressing inlace. The dressing does have shadow drainage and the Tegaderm is loose.
[2022-01-08 14:00] VITALS: BP 131/80
[2022-01-08] MEDS ORDERED: HYDROmorphone (Dilaudid)/NS 0.2 mg/ml 100ml CADD ONE (15:32)
[2022-01-08] MEDS: normal saline 1000ml 1,000 ML IV SCH (15:34)
[2022-01-08] MEDS ORDERED: LORazepam 0.5 MG tablet PO PRN (16:55)
--- NOTE | 2022-01-08 17:45 | NUR ---
Mr Toth has been assessed as indicated. He continues to use [employer] successfully. He was very tearful frequently this shift. staff tried to comfort and sooth as much as possible. He was instructed on the need to stop drugs by his MD. He will likely have hi chest tubes pulled tomorrow. He is now to water seal. and tolerating this well. The CXR was completed at 1700. He is presently resting quietly
[2022-01-08 18:00] VITALS: BP 118/63
--- NOTE | 2022-01-08 18:15 | NUR ---
Problems reprioritized. Patient report given, questions answered & plan of care reviewed with GERRED.
[2022-01-08] MEDS: enoxaparin 40mg/0.4ml syringe SQ SCH (20:05)
[2022-01-08 22:00] VITALS: BP 121/61
[2022-01-09] MEDS: piperacillin/tazo 4.5gm/100ml 100 ML IV SCH ×3 (00:15→16:00)
[2022-01-09] MEDS: HYDROmorph./NS 0.2 mg/ml CADD 100 ML IV SCH ×3 (01:00→05:00)
[2022-01-09 02:00] VITALS: BP 124/63
[2022-01-09] MEDS: VANCOMYCIN 1,500MG inj. 1,500 MG in normal saline 500ml IV soln 300 ML IV SCH ×3 (02:20→17:00)
[2022-01-09] MEDS: ketorolac trometh. 30mg/ml inj. IV SCH ×3 (02:36→18:28)
[2022-01-09] MEDS ORDERED: HYDROmorphone (Dilaudid)/NS 0.2 mg/ml 100ml CADD ONE (03:31)
[2022-01-09 06:00] VITALS: BP 125/72
[2022-01-09 06:20] LABS: BASOPHILS % (AUTO) 0.4 % (0-1); EOSINOPHILS # (AUTO) 0.5 X10'3 (0-0.9); HEMOGLOBIN 10.9 g/dl (14.0-17.9); LYMPHOCYTES # (AUTO) 2.1 X10'3 (1.1-4.8); LYMPHOCYTES % (AUTO) 15.8 % (21-51); MEAN CORPUSCULAR HEMOGLOBIN 27.9 PG (27.0-31.0); MEAN CORPUSCULAR HGB CONC 33.1 g/dL (33.0-36.5); MEAN CORPUSCULAR VOLUME 84.3 FL (78-98); MEAN PLATELET VOLUME 6.6 FL (7.4-10.4); MONOCYTES # (AUTO) 1.8 X10'3 (0-0.9); MONOCYTES % (AUTO) 13.7 % (2-12); NEUTROPHILS # (AUTO) 8.8 X10'3 (1.8-7.7); NEUTROPHILS % (AUTO) 66.1 % (42-75); PLATELET COUNT 538 X10'3 (140-440); RED BLOOD COUNT 3.92 X10'6 (4.70-6.10); RED CELL DISTRIBUTION WIDTH 13.9 % (11.5-14.5); WHITE BLOOD COUNT 13.2 X10'3 (4.5-11.0)
[2022-01-09] MEDS: JUVEN Smoothie Arginine/Glut./Ca2+Bmb (Juven 19.3pkt) 240ml cup PO SCH (07:30)
[2022-01-09 07:44] LABS: ALANINE AMINOTRANSFERASE 39 U/L (12-78); ALBUMIN 1.8 G/DL (3.4-5.0); ALBUMIN/GLOBULIN RATIO 0.5 (1.1-1.5); ALKALINE PHOSPHATASE 66 IU/L (46-116); ANION GAP 10 (8-16); ASPARTATE AMINO TRANSFERASE 36 U/L (10-37); BILIRUBIN,TOTAL 0.2 MG/DL (0.1-1.0); BLOOD UREA NITROGEN 14 MG/DL (7-18); BUN/CREATININE RATIO 13.2 (5.4-32.0); CALCIUM 7.8 MG/DL (8.5-10.1); CHLORIDE 108 MMOL/L (99-107); CREATININE 1.06 MG/DL (0.60-1.10); GLUCOSE 99 MG/DL (70-104); POTASSIUM 4.6 MMOL/L (3.5-5.1); SODIUM 141 MMOL/L (135-145); TOTAL CARBON DIOXIDE 22.7 MMOL/L (24-32); TOTAL PROTEIN 5.7 G/DL (6.4-8.2); eGFR 86 ML/MIN
[2022-01-09] MEDS: K and/or MAG REPLACEMENT MC SCH (08:00)
[2022-01-09] MEDS: docusate sod 100mg capsule PO SCH (09:26)
[2022-01-09] MEDS: nicotine 21mg patch - 24 hr TD SCH (09:26)
[2022-01-09 11:00] VITALS: BP 125/78
[2022-01-09] MEDS ORDERED: VANCOMYCIN LEVEL IV ONE (16:30)
[2022-01-09] MEDS ORDERED: HYDROcodone/acetaminophen 5mg/325mg tablet PO PRN (17:40)
--- NOTE | 2022-01-09 20:15 | NUR ---
Patient still verbalizing wanting to leave AMA at this time. AMA form signed by patient with primary care nurse. Patient escorted by security out of the hospital at this time with his belongings.
== END 2022-01-09 20:15 | disposition left against medical advice (07) | DRG 720 ==
LOC: ER 06:21 → ED HOLD 08:17 → PCU 3S 10:22 → PACU 01-03 15:56 → ICU 2S 01-03 17:52 → MED 3N 01-05 15:35
PROVIDERS: ADMIT Family Medicine; ATTEND Surgery
PROC: 0W9930Z Drainage of Right Pleural Cavity with Drainage Device, Percutaneous Approach (ICD-10-PCS; 2022-01-02)
PROC: 3E0L3GC Introduction of Other Therapeutic Substance into Pleural Cavity, Percutaneous Approach (ICD-10-PCS; 2022-01-02)
PROC: 0BNC0ZZ Release Right Upper Lung Lobe, Open Approach (ICD-10-PCS; 2022-01-03)
PROC: 0BND0ZZ Release Right Middle Lung Lobe, Open Approach (ICD-10-PCS; 2022-01-03)
PROC: 0W9900Z Drainage of Right Pleural Cavity with Drainage Device, Open Approach (ICD-10-PCS; 2022-01-03)
PROC: 02HV33Z Insertion of Infusion Device into Superior Vena Cava, Percutaneous Approach (ICD-10-PCS; 2022-01-03)
PROC: B548ZZA Ultrasonography of Superior Vena Cava, Guidance (ICD-10-PCS; 2022-01-03)
PROC: 03HY32Z Insertion of Monitoring Device into Upper Artery, Percutaneous Approach (ICD-10-PCS; 2022-01-03)
PROC: 0BNF0ZZ Release Right Lower Lung Lobe, Open Approach (ICD-10-PCS; principal; 2022-01-03 13:42)
DX: A41.9 Sepsis, unspecified organism (principal); J86.9 Pyothorax without fistula; R04.2 Hemoptysis; J98.19 Other pulmonary collapse; Z20.822 Contact with and (suspected) exposure to COVID-19; F11.10 Opioid abuse, uncomplicated; D64.9 Anemia, unspecified; F15.10 Other stimulant abuse, uncomplicated; F17.210 Nicotine dependence, cigarettes, uncomplicated; I25.10 Atherosclerotic heart disease of native coronary artery without angina pectoris; J90 Pleural effusion, not elsewhere classified; Z53.29 Procedure and treatment not carried out because of patient's decision for other reasons; Z71.6 Tobacco abuse counseling
CPT/HCPCS: 32557; 36000; 36415; 36600; 71045; 76937; 80053; 80202; 82803; 82948; 83605; 83735; 84100; 84145; 85007; 85018; 85025; 87040; 87070; 87075; 87081; 87635; 93306; 94002; 94003; 94760; 94799; 96374; 96375; 97116; 97162; 99285; A4215; A4618; A6258; A6449; A7000; A7048; C1758; C9250; G0378; J0690; J1100; J1170; J1650; J1885; J2250; J2405; J2543; J2704; J2997; J3010; J3370; J3480; J3490; J7030; J7040; J7060; J7120; P9045